=== PATIENT | male | born 1995 | race African-American/Black ===

== ENCOUNTER 2018-02-25 20:06 | Inpatient (IN) ==
[2018-02-25] MEDS ORDERED: KETOROLAC 30 MG/1 ML VIAL IV STA (21:22)
[2018-02-25 21:45] LABS: Apearance,Urine CLEAR (Clear); Bilirubin,Urine Negative (Negative); Blood, Urine Large mg/dL (Negative); Glucose,Urine (UA) Negative (Negative); Hyaline Casts,Urine 4 /LPF (0-3); Ketones,Urine Negative (Negative); Mucus,Urine Occasional /LPF (Occasional); Nitrite,Urine Negative (Negative); Protein,Urine 100 MG/DL; RBC,Urine 1 /HPF (0-4); Urine Color Amber (Yellow); Urine Specific Gravity 1.023 (1.001-1.035); Urine Urobilinogen < 2.0 EU/DL (0.2-1.0); WBC,Urine 7 /HPF (0-6)
[2018-02-25 22:39] LABS: Basophils % 0.2 % (0.0-0.8); Eosinophils # 0.2 10*3/uL (0.0-0.87); Eosinophils % 1.8 % (0.00-10.9); Hematocrit 42.9 VOL% (42.0-52.0); Hemoglobin 14.3 GM/DL (14.0-18.0); Immature Granulocytes % 0.3 %; Immature Granulocytes Absolute 0.03 #; Lymphocytes # 3.1 10*3/uL (1.4-4.0); Lymphocytes % 34.9 % (21.2-54.2); Mean Corpuscular HGB Conc 33.3 GM/DL (32-36); Mean Corpuscular Hemoglobin 29 PG (27-34); Mean Corpuscular Volume 88.3 FL (87-102); Mean Platelet Volume 10.2 FL (9.6-12.0); Monocytes # 0.6 10*3/uL (0.11-0.8); Monocytes % 7.3 % (1.7-12.7); Neutrophils # 4.9 10*3/uL (1.4-7.4); Neutrophils % 55.5 % (38.7-73.9); Platelet Count 316 T/CUMM (130-400); Red Blood Count 4.86 MC/CUMM (3.8-5.5); White Blood Count 8.8 T/CUMM (4-12)
[2018-02-25 23:05] LABS: Bilirubin,Total 0.5 MG/DL (0.2-1.0); Osmolality,Calculated 282.1 MOS/KG (273-304); Potassium 4.3 MMOL/L (3.5-5.1); Total Protein 7.6 G/DL (6.4-8.3)
[2018-02-26] MEDS ORDERED: SODIUM CHLORIDE 0.9% 2,000 ML IV STA (01:03)
[2018-02-26 01:15] LABS: PT Patient Result 10.8 SECS; Partial Thromboplastin Time 25.8 SECS (0-40)
[2018-02-26 02:29] LABS: Hepatitis A Ab IgM Quant 0.14 Index; Hepatitis A Ab IgM Result Negative (Negative); Hepatitis B Core IgM Quant < 0.05 Index; Hepatitis B Core IgM Result Negative (Negative); Hepatitis B Surface Ag Quant 0.24 Index; Hepatitis B Surface Ag Result Negative (Negative); Hepatitis C Virus Ab Quant 0.14 Index; Hepatitis C Virus Ab Result Negative (Negative)
[2018-02-26] MEDS ORDERED: ALBUTEROL 2.5 MG/3 ML NEB RESP TX PRN (02:44)
[2018-02-26] MEDS: SODIUM CHLORIDE 0.9% 1,000 ML IV SCH ×6 (03:50→20:54)
[2018-02-26 08:38] LABS: Albumin 3.3 G/DL (3.4-5.0); Bilirubin,Total 0.8 MG/DL (0.2-1.0); Calcium 8.5 MG/DL (8.5-10.1); Osmolality,Calculated 282.1 MOS/KG (273-304); Potassium 4.5 MMOL/L (3.5-5.1)
[2018-02-26] MEDS: PANTOPRAZOLE 40 MG TABLET PO SCH (09:26)
[2018-02-26] MEDS ORDERED: CARVEDILOL 25 MG TABLET PO SCH (10:30)
[2018-02-26] MEDS: CARVEDILOL 12.5 MG TABLET PO SCH ×2 (10:34→20:50)
[2018-02-26 16:12] LABS: Calcium 7.9 MG/DL (8.5-10.1); Osmolality,Calculated 280.1 MOS/KG (273-304); Potassium 3.9 MMOL/L (3.5-5.1)
[2018-02-26] MEDS ORDERED: LABETALOL 100 MG/20 ML VIAL IV PRN (17:34)
[2018-02-26 19:32] LABS: Albumin 2.9 G/DL (3.4-5.0); Bilirubin,Total 0.4 MG/DL (0.2-1.0); Calcium 8.2 MG/DL (8.5-10.1); Osmolality,Calculated 278.3 MOS/KG (273-304); Potassium 4.5 MMOL/L (3.5-5.1); Total Protein 6.4 G/DL (6.4-8.3)
[2018-02-26 23:33] LABS: Osmolality,Calculated 276.4 MOS/KG (273-304); Potassium 4.1 MMOL/L (3.5-5.1)
[2018-02-27] MEDS: SODIUM CHLORIDE 0.9% 1,000 ML IV SCH ×5 (00:05→13:45)
[2018-02-27 07:57] LABS: Potassium 4.1 MMOL/L (3.5-5.1)
[2018-02-27 07:59] LABS: Calcium 8.4 MG/DL (8.5-10.1)
[2018-02-27 08:00] LABS: Osmolality,Calculated 278.3 MOS/KG (273-304)
[2018-02-27 08:19] LABS: Bilirubin,Total 0.7 MG/DL (0.2-1.0); Total Protein 6.6 G/DL (6.4-8.3)
[2018-02-27] MEDS: PANTOPRAZOLE 40 MG TABLET PO SCH (08:59)
[2018-02-27] MEDS: CARVEDILOL 12.5 MG TABLET PO SCH ×2 (08:59→20:37)
[2018-02-27] MEDS: SODIUM BICARB INJ 50 MEQ in SODIUM CHLORIDE 0.45% 1,000 ML IV SCH ×3 (17:17→21:47)
[2018-02-27 19:41] LABS: Albumin 3.2 G/DL (3.4-5.0); Bilirubin,Total 0.5 MG/DL (0.2-1.0); Calcium 8.9 MG/DL (8.5-10.1); Osmolality,Calculated 276.4 MOS/KG (273-304); Total Protein 6.8 G/DL (6.4-8.3)
[2018-02-28] MEDS: SODIUM BICARB INJ 50 MEQ in SODIUM CHLORIDE 0.45% 1,000 ML IV SCH ×7 (01:17→23:09)
[2018-02-28 06:59] LABS: Calcium 8.7 MG/DL (8.5-10.1); Osmolality,Calculated 279.3 MOS/KG (273-304); Potassium 3.7 MMOL/L (3.5-5.1)
[2018-02-28] MEDS: PANTOPRAZOLE 40 MG TABLET PO SCH (08:36)
[2018-02-28] MEDS: CARVEDILOL 12.5 MG TABLET PO SCH ×2 (08:36→21:37)
[2018-03-01] MEDS: SODIUM BICARB INJ 50 MEQ in SODIUM CHLORIDE 0.45% 1,000 ML IV SCH ×7 (02:37→22:31)
[2018-03-01 07:41] LABS: Albumin 3.1 G/DL (3.4-5.0); Bilirubin,Total 0.5 MG/DL (0.2-1.0); Calcium 8.8 MG/DL (8.5-10.1); Osmolality,Calculated 278.3 MOS/KG (273-304); Potassium 3.9 MMOL/L (3.5-5.1); Total Protein 6.6 G/DL (6.4-8.3)
[2018-03-01] MEDS: PANTOPRAZOLE 40 MG TABLET PO SCH (10:02)
[2018-03-01] MEDS: CARVEDILOL 12.5 MG TABLET PO SCH ×2 (10:02→21:13)
[2018-03-01] MEDS ORDERED: KETOROLAC 15 MG/1 ML VIAL IV ONE (19:53)
[2018-03-02] MEDS: SODIUM BICARB INJ 50 MEQ in SODIUM CHLORIDE 0.45% 1,000 ML IV SCH ×7 (02:01→22:52)
[2018-03-02 02:33] LABS: Troponin I Only < 0.015 NG/ML (0.00-0.045)
[2018-03-02 06:57] LABS: Basophils % 0.3 % (0.0-0.8); Eosinophils # 0.2 10*3/uL (0.0-0.87); Eosinophils % 3.9 % (0.00-10.9); Hematocrit 37.2 VOL% (42.0-52.0); Hemoglobin 12.6 GM/DL (14.0-18.0); Immature Granulocytes % 0.2 %; Immature Granulocytes Absolute 0.01 #; Lymphocytes # 2.3 10*3/uL (1.4-4.0); Lymphocytes % 37.1 % (21.2-54.2); Mean Corpuscular HGB Conc 33.9 GM/DL (32-36); Mean Corpuscular Hemoglobin 29 PG (27-34); Mean Corpuscular Volume 85.7 FL (87-102); Mean Platelet Volume 10.2 FL (9.6-12.0); Monocytes # 0.5 10*3/uL (0.11-0.8); Monocytes % 7.3 % (1.7-12.7); Neutrophils # 3.1 10*3/uL (1.4-7.4); Neutrophils % 51.2 % (38.7-73.9); Platelet Count 312 T/CUMM (130-400); Red Blood Count 4.34 MC/CUMM (3.8-5.5); Red Cell Distribution Width 12.6 % (9.3-17.3); White Blood Count 6.1 T/CUMM (4-12)
[2018-03-02 07:25] LABS: Albumin 3.2 G/DL (3.4-5.0); Bilirubin,Total 0.7 MG/DL (0.2-1.0); Calcium 8.9 MG/DL (8.5-10.1); Osmolality,Calculated 276.4 MOS/KG (273-304); Total Protein 6.7 G/DL (6.4-8.3)
[2018-03-02] MEDS: PANTOPRAZOLE 40 MG TABLET PO SCH (10:43)
[2018-03-02] MEDS: CARVEDILOL 12.5 MG TABLET PO SCH ×2 (10:43→20:39)
[2018-03-03] MEDS: SODIUM BICARB INJ 50 MEQ in SODIUM CHLORIDE 0.45% 1,000 ML IV SCH ×6 (02:30→23:23)
[2018-03-03 06:55] LABS: Albumin 3.1 G/DL (3.4-5.0); Bilirubin,Total 0.6 MG/DL (0.2-1.0); Calcium 9.1 MG/DL (8.5-10.1); Osmolality,Calculated 274.5 MOS/KG (273-304); Potassium 3.7 MMOL/L (3.5-5.1); Total Protein 6.9 G/DL (6.4-8.3)
[2018-03-03] MEDS: CARVEDILOL 12.5 MG TABLET PO SCH ×2 (09:40→20:46)
[2018-03-03] MEDS: PANTOPRAZOLE 40 MG TABLET PO SCH (09:41)
[2018-03-03] MEDS ORDERED: NAPROXEN 250 MG TABLET PO PRN (18:51)
[2018-03-04] MEDS: SODIUM BICARB INJ 50 MEQ in SODIUM CHLORIDE 0.45% 1,000 ML IV SCH ×7 (02:45→23:44)
[2018-03-04 04:15] LABS: Basophils % 0.5 % (0.0-0.8); Eosinophils # 0.3 10*3/uL (0.0-0.87); Eosinophils % 4.2 % (0.00-10.9); Hematocrit 36.3 VOL% (42.0-52.0); Hemoglobin 12.2 GM/DL (14.0-18.0); Immature Granulocytes % 0.2 %; Immature Granulocytes Absolute 0.01 #; Lymphocytes # 2.8 10*3/uL (1.4-4.0); Lymphocytes % 44.1 % (21.2-54.2); Mean Corpuscular HGB Conc 33.6 GM/DL (32-36); Mean Corpuscular Hemoglobin 30 PG (27-34); Mean Corpuscular Volume 88.1 FL (87-102); Mean Platelet Volume 10.1 FL (9.6-12.0); Monocytes # 0.5 10*3/uL (0.11-0.8); Monocytes % 7.1 % (1.7-12.7); Neutrophils # 2.8 10*3/uL (1.4-7.4); Neutrophils % 43.9 % (38.7-73.9); Platelet Count 304 T/CUMM (130-400); Red Blood Count 4.12 MC/CUMM (3.8-5.5); Red Cell Distribution Width 12.8 % (9.3-17.3); White Blood Count 6.4 T/CUMM (4-12)
[2018-03-04 04:59] LABS: Alanine Aminotransferase 293 U/L (16-61); Albumin 3.2 G/DL (3.4-5.0); Alkaline Phosphatase 69 U/L (45-117); Aspartate Amino Transferase 199 U/L (0-37); Bilirubin,Direct < 0.100 MG/DL (0.0-0.20); Bilirubin,Indirect 0.3 MG/DL (0.0-1.0); Bilirubin,Total < 0.39 MG/DL (0.2-1.0); Blood Urea Nitrogen 11 MG/DL (7-18); Calcium 8.8 MG/DL (8.5-10.1); Glucose 86 MG/DL (74-106); Osmolality,Calculated 276.4 MOS/KG (273-304); Potassium 3.9 MMOL/L (3.5-5.1); Sodium 140 MMOL/L (136-145); Total Protein 6.6 G/DL (6.4-8.3)
[2018-03-04] MEDS: PANTOPRAZOLE 40 MG TABLET PO SCH (08:59)
[2018-03-04] MEDS: CARVEDILOL 12.5 MG TABLET PO SCH ×2 (08:59→20:08)
[2018-03-05] MEDS: SODIUM BICARB INJ 50 MEQ in SODIUM CHLORIDE 0.45% 1,000 ML IV SCH ×6 (03:00→22:17)
[2018-03-05 05:39] LABS: Basophils % 0.3 % (0.0-0.8); Eosinophils # 0.2 10*3/uL (0.0-0.87); Eosinophils % 2.9 % (0.00-10.9); Hematocrit 37.1 VOL% (42.0-52.0); Hemoglobin 12.3 GM/DL (14.0-18.0); Immature Granulocytes % 0.3 %; Immature Granulocytes Absolute 0.02 #; Lymphocytes # 2.5 10*3/uL (1.4-4.0); Lymphocytes % 43.1 % (21.2-54.2); Mean Corpuscular HGB Conc 33.2 GM/DL (32-36); Mean Corpuscular Hemoglobin 29 PG (27-34); Mean Corpuscular Volume 87.9 FL (87-102); Mean Platelet Volume 10.2 FL (9.6-12.0); Monocytes # 0.5 10*3/uL (0.11-0.8); Monocytes % 7.9 % (1.7-12.7); Neutrophils # 2.6 10*3/uL (1.4-7.4); Neutrophils % 45.5 % (38.7-73.9); Platelet Count 322 T/CUMM (130-400); Red Blood Count 4.22 MC/CUMM (3.8-5.5); Red Cell Distribution Width 12.7 % (9.3-17.3); White Blood Count 5.8 T/CUMM (4-12)
[2018-03-05 06:19] LABS: Alanine Aminotransferase 251 U/L (16-61); Albumin 3.1 G/DL (3.4-5.0); Alkaline Phosphatase 72 U/L (45-117); Aspartate Amino Transferase 129 U/L (0-37); Bilirubin,Total < 0.39 MG/DL (0.2-1.0); Blood Urea Nitrogen 12 MG/DL (7-18); CKMB % 0.3 %; Glucose 91 MG/DL (74-106); Osmolality,Calculated 274.7 MOS/KG (273-304); Potassium 3.8 MMOL/L (3.5-5.1); Sodium 138 MMOL/L (136-145); Total Protein 6.8 G/DL (6.4-8.3)
[2018-03-05] MEDS: CARVEDILOL 12.5 MG TABLET PO SCH ×2 (09:04→20:22)
[2018-03-05] MEDS: PANTOPRAZOLE 40 MG TABLET PO SCH (09:04)
[2018-03-06] MEDS: SODIUM BICARB INJ 50 MEQ in SODIUM CHLORIDE 0.45% 1,000 ML IV SCH ×8 (00:41→19:33)
[2018-03-06 07:42] LABS: Alanine Aminotransferase 218 U/L (16-61); Albumin 3.2 G/DL (3.4-5.0); Alkaline Phosphatase 75 U/L (45-117); Aspartate Amino Transferase 85 U/L (0-37); Bilirubin,Total < 0.39 MG/DL (0.2-1.0); Blood Urea Nitrogen 13 MG/DL (7-18); CKMB % 0.7 %; Calcium 9.2 MG/DL (8.5-10.1); Glucose 89 MG/DL (74-106); Osmolality,Calculated 275.5 MOS/KG (273-304); Potassium 4.1 MMOL/L (3.5-5.1); Sodium 139 MMOL/L (136-145)
[2018-03-06] MEDS: CARVEDILOL 12.5 MG TABLET PO SCH (12:10)
[2018-03-06] MEDS: PANTOPRAZOLE 40 MG TABLET PO SCH (12:10)
[2018-03-06 16:56] VITALS: BP 151/68
[2018-03-06 17:13] LABS: CKMB % 0.9 %
== END 2018-03-06 19:26 | disposition home or self-care (01) | DRG 566 ==
LOC: N.ED 20:06 → SUATTDRO 02-26 02:44 → N.EDINP 02-26 02:44 → N.ICU 02-26 03:18 → N.3E 02-26 15:40
PROVIDERS: ADMIT Internal Medicine; ATTEND Hospitalist